=== PATIENT | female | born 1935 | race Caucasian/White ===

== ENCOUNTER → 2022-09-10 13:18 | Outpatient (BNVA) | payer MEDICARE, OTHER, SELFPAY | PROVIDERS: PCP Hospitalist; Visit Provider Psychiatry & Neurology Neurology | DX: G25.0 Essential tremor (principal); G25.2 Other specified forms of tremor; R26.9 Unspecified abnormalities of gait and mobility | CPT/HCPCS: 99202 ==

== ENCOUNTER 2023-03-27 09:51 | Outpatient (AMB) | payer MEDICARE, OTHER, SELFPAY ==
--- NOTE | 2023-03-27 09:51 | MHC.OFFVIS ---
Intake Intake Visit Reasons: follow up meds(ok per )-confirmed Intake Note: Patient following up on medication check. Allergies No Known Allergies Allergy (Verified 03/27/23 09:52) Medication List - Last Reconciled 03/27/23 by Renee Fisher MD escitalopram oxalate 10 mg PO DAILY levothyroxine 50 mcg PO DAILY midodrine 2.5 mg PO BID multivitamin (Daily Multi-Vitamin tablet) 1 tab PO DAILY [id number] oil-D3 150-500-200 mg-mg-unit ([place]-3 Plus Vitamin D3) caps PO primidone 50 mg PO BID 90 days rosuvastatin 10 mg PO DAILY HPI HPI Comments History of Present Illness Details 87y/o female calls for follow up of essential tremors and gait , balance issues.she lives in [facility] in [place]. she is doing good with primidone 50mg bid . she uses a walker and denies falls. SHe has had tremors for over 10 years , diagnosed with essential tremors when she was in [place]. . she feels unsteady on her feet, diagnosed with neuropathy about 6 years ago in [place]. she recently had a left ankle fracture about 8 month ago. Her balance is not good and she uses a walker . no falls. [facility] Medical History Atrial fibrillation Depression Essential and other specified forms of tremor Gait disorder Hearing loss Hyperlipidemia Hypothyroidism Osteoporosis Renal calculi TIA (transient ischemic attack) Surgical History Hx of cholecystectomy Hx of hysterectomy, total Family History Father Cancer Heart disease Mother No problems noted. Social History Alcohol intake: current Alcohol intake frequency: holidays/special occasions only Patient Tobacco Use Status: Never used Tobacco Physical Exam Const Other: normal mood and speech General: cooperative Orientation/consciousness: patient oriented x3 Neuro General: patient oriented x3 Assessment & Plan Assessment & Plan (1) Essential and other specified forms of tremor: Comment: stable Code(s): G25.0 - Essential tremor; G25.2 - Other specified forms of tremor (2) Gait disorder: Comment: likely multifactorial Code(s): R26.9 - Unspecified abnormalities of gait and mobility Plan Continue primidone 50mg bid Fall prevention discussed use walker consistently PT Orders: Orders PT Evaluation and Treatment Today R26.9 - Unspecified abnormalities of gait and mobility Coding Level of Care Code Tele Est Pt Level 4 (20835) Diagnoses Essential and other specified forms of tremor G25.0; G25.2 Gait disorder R26.9 Time Spent (min) 23
== END 2023-03-27 11:52 | disposition home or self-care (01) ==
LOC: HO.HSMS 09:51
PROVIDERS: PCP Hospitalist; Visit Provider Psychiatry & Neurology Neurology
DX: G25.0 Essential tremor (principal); G25.2 Other specified forms of tremor; R26.9 Unspecified abnormalities of gait and mobility
CPT/HCPCS: 99443

== ENCOUNTER → 2023-03-27 09:51 | Outpatient (BNVA) | payer MEDICARE, OTHER, SELFPAY | PROVIDERS: PCP Hospitalist; Visit Provider Psychiatry & Neurology Neurology ==